=== PATIENT | female | born 1945 | race Caucasian/White ===

== ENCOUNTER 2017-06-11 09:48 | Emergency (ER) | payer OTHER ==
[~2017-06-11] VITALS: Ht 160 cm; Wt 60.4 kg
[2017-06-11 10:40] LABS: BASOPHIL (%) 0.4 % (0-1); EOSINOPHIL (%) 0.2 % (0-5); HEMATOCRIT 41.4 % (36.0-46.0); HEMOGLOBIN 14.3 G/DL (11.9-15.5); IMMATURE GRANULOCYTE (%) 0.4 % (0.0-0.7); LYMPHOCYTE (%) 13.2 % (15-42); LYMPHOCYTE COUNT 1.4 K/uL (1.0-2.8); MCH 31.8 PG (29.0-34.0); MCHC 34.5 G/DL (30.0-36.0); MCV 92.2 FL (83-99); MONOCYTE (%) 5.5 % (3-12); MONOCYTE COUNT 0.6 K/uL (0-0.8); NEUTROPHIL (%) 80.3 % (45-76); NEUTROPHIL COUNT 8.2 K/uL (1.8-6.4); PLATELET COUNT 254 K/uL (156-360); RBC DIS.WIDTH-CV 14.7 % (11.8-14.6); RBC DIS.WIDTH-SD 50.4 % (39-53); RED BLOOD COUNT 4.49 M/uL (3.80-5.20); WHITE BLOOD COUNT 10.2 K/uL (4.1-10.2)
[2017-06-11 10:49] LABS: CHLORIDE 102 mEq/L (99-109); POTASSIUM 3.6 mEq/L (3.7-5.4); SODIUM 140 mEq/L (136-147)
[2017-06-11 10:51] LABS: GLUCOSE 106 mg/dL (70-99)
[2017-06-11 10:54] LABS: CREATININE 0.8 mg/dL (0.6-1.3); GFR ESTIMATE (CALCULATED) > 59 mL/min/
[2017-06-11 10:55] LABS: UREA NITROGEN (BUN) 19 mg/dL (9-23)
[2017-06-11 12:01] VITALS: BP 119/61
== END 2017-06-11 12:03 | disposition home or self-care (01) ==
LOC: EME 09:48
PROVIDERS: Emergency Medicine
DX: R10.9 Unspecified abdominal pain (principal); I10 Essential (primary) hypertension; E78.5 Hyperlipidemia, unspecified
CPT/HCPCS: 80048; 85025; 85610; 99281; 99284